=== PATIENT | female | born 1965 | race Caucasian/White ===

== ENCOUNTER → 2018-10-07 09:43 | Day surgery (SDC) | payer OTHER ==
[~2018-10-07 09:43] MED LIST: Buffered Lidocaine 1% SYRIN* 1 ML/SYRINGE INTRADERM ONE; Bupivacaine 0.5% W/EPI SDV* 30 ML VIAL ONE; Bupivacaine 0.5%* 50 ML VIAL ONE; Dexamethasone IV* 4 MG/ML 1 ML (4 MG) IV SLOW PU ONE; Dexamethasone IV* 4 MG/ML 1 ML (4 MG) ONE; DiMENhydriNATE IV* 50 MG/ML VIAL IV PUSH PRN; DiMENhydriNATE IV* 50 MG/ML VIAL ONE; Famotidine IV* 10 MG/ML 2 ML (20 mg) IV SLOW PU ONE; Famotidine IV* 10 MG/ML 2 ML (20 mg) ONE; HYDROmorphone INJ1* 1 MG/ML SYRINGE ONE; Ibuprofen TAB* 600 MG ONE; Ketorolac INJ* 30 MG/ML 1 ML VIAL ONE; Lactated Ringers 1000 ML Bag* 1,000 ML IV SCH; Lidocaine 2% PF * 5 ML VIAL ONE; Midazolam* 1 MG/ML 5 ML VIAL (5 MG) ONE; Naloxone* 0.4 MG/ML 1 ML VIAL IV PRN; Ondansetron INJ* 2 MG/ML VIAL IV PRN; Ondansetron INJ* 2 MG/ML VIAL ONE; Propofol* 10 MG/ML 20 ML BTL ONE; Scopolamine 1.5 mg* PATCH ONE; Scopolamine 1.5 mg* PATCH TRANSDERM PRN; ceFAZolin 2 GM PREMIX in ORs 2 GM/50 ML BAG IVPB ONE; fentaNYL* 50 MCG/ML 2 ML VIAL (100 MCG VIAL) ONE; fentaNYL* 50 MCG/ML 5 ML VIAL (250 MCG VIAL) ONE; oxyCODONE TAB* 5 MG TAB ONE; oxyCODONE/Acetamin 5/325 MG* TAB ONE; oxyCODONE/Acetamin 5/325 MG* TAB PO PRN
--- NOTE | 2018-10-07 15:18 | OP ---
Operative Report - Blank - Operative Report Date of Operation: 10/07/18 Note: PATIENT: Jenniffer Fernandez DATE OF : 1965 DATE OF SURGERY: 10/07/2018 SURGEON: Velasquez Terry MD ENROLLMENT MANAGEMENT MANAGER: ALISSON Hernandez, whos assistance was necessary for positioning, retraction, help with instrumentation, and closure. ANESTHESIOLOGIST: Dr. Massey PREOPERATIVE DIAGNOSIS: Left foot hallux rigidus status post failed Cartiva implantation POSTOPERATIVE DIAGNOSIS: Left foot hallux rigidus status post failed Cartiva implantation OPERATION: Left foot removal of Cartiva implant and then first metatarsophalangeal joint arthrodesis with iliac crest autograft ANESTHESIA: General IMPLANTS: Arthrex 1st MTP dorsal plate and 3.0mm cannulated screw TOURNIQUET TIME: Less than 2 hours with a well-padded thigh tourniquet at 250 mmHg. SPECIMENS: None ESTIMATED BLOOD LOSS: Minimal COMPLICATIONS: none STATUS: Stable from the operating room to the recovery room and then home. INDICATIONS FOR PROCEDURE: Jenniffer had a prior Cartiva implantation for hallux rigidus with persistent pain. Both operative and non-operative treatment alternatives were reviewed. Further, the nature and risks of surgery were reviewed in careful detail, in the office as well as the pre-operative holding area. Our discussions regarding the risks of surgery included, but were not limited to, infection, wound problems, nerve injury, neuroma, RSD, persistent symptoms, blood clot, nonunion, malunion, fracture, need for further surgery, failure of the surgery, and even the remote chance of catastrophic complication, including loss of limb. DESCRIPTION OF PROCEDURE: The patient was seen in the preoperative holding unit and informed written consent was obtained. The appropriate extremity was marked. The patient was then brought to the operating room and carefully positioned on the operating room table. Anesthesia was induced. All bony prominences were padded with great care. A chlorhexidine based pre-scrub was performed followed by a chloraprep prep and drape in standard sterile fashion. A surgical safety pause was then conducted in which we confirmed the appropriate patient, extremity, planned procedure, availability of equipment, indication and administration of prophylactic antibiotics, and DVT prophylaxis in the form of a compression boot on the non-surgical extremity. I began with an Esmarch exsanguination of the limb and inflated the tourniquet. I then made an incision dorsally overlying the first MTP joint. I carried the dissection down through the soft tissue and mobilized the EHL tendon laterally. I then came sharply down to the level of the first MTP joint. I released around the medial aspects and lateral aspects of the joint to expose the metatarsal head and the base of the proximal phalanx. We had excellent visualization. There was no obvious problem with the Cartiva or any loosening appreciated. I removed the Cartiva implant in whole. I then removed any remaining cartilage on the metatarsal head and proximal phalanx with a 15 blade scalpel and curette. I then used a curette to remove any fibrinous coating in the Cartiva site. I then used a 2 mm be to golf ball the first metatarsal head and proximal phalanx. A small K wire was then used to drill numerous holes in the first metatarsal and proximal phalanx as well. Attention was then turned to the left iliac crest which had been previously prepped and draped in a standard fashion. A small amount of Marcaine with epinephrine was placed in the subcutaneous tissues and then also used to anesthetize the periosteum and the soft tissues over the ASIS. Just posterior to the ASIS, a small stab incision using a 15 blade was made. A Jamshidi needle was then advanced being careful to stay centered on the iliac crest. This was advanced slowly and carefully through the superior cortex of the crest between the inner and outer tables of bone. Once this area had been reached, a syringe was used to remove 3cc of bone marrow aspirate. The stylet was then removed from the Jamshidi needle and multiple cores on bone graft were harvested from the iliac crest. These were added to the dish with the bone marrow aspirate. The incision site for the bone graft was then copiously irrigated and closed in layers utilizing 3-0 Monocryl and 3-0 nylon. A sterile dressing was applied. The bone graft was then placed into the hole where the implant was removed on the first metatarsal head. It was tamped in with a bone tamp. This filled up the entirety of the hole. I then manually reduced the first MTP joint and placed a 0.062 K wire to provisionally hold it in alignment while I checked the alignment, both visually and fluoroscopically. I then placed a dorsal Arthrex first MTP joint plate on the dorsal aspect of the first MTP joint. I manually compress the joint while first placing a dorsal locking screws and then a proximal screw in the oblong hole to provide extra compression. I then placed a 3.0 mm cannulated screw across the joint to provide extra compression. The rest of the screw holes in the plate were then filled in. At the margins of the joint, I used some ground up allograft chips mixed with the bone marrow aspirate, tamped into the edges of the joint. Final fluoroscopic images were then obtained. The wound was irrigated and meticulously closed in layers utilizing 3-0 Monocryl and 3-0 nylon. A sterile dressing was then applied followed by a splint with the ankle in a neutral position. The patient was then awakened from anesthesia and transferred to the recovery room in stable condition. There were no complications. All needle and sponge counts were correct at the end of the case. ATTESTATION: I attest I was present and scrubbed and performed the critical portions of the procedure myself. POSTOPERATIVE PLAN: The patient will remain heel weightbearing for anticipated duration of 8 weeks. Followup will be in 2 weeks for likely suture removal and Steri-Strip application.
[2018-10-07] MEDS: fentaNYL* 50 MCG/ML 2 ML VIAL (100 MCG VIAL) IV PRN ×2 (15:28→16:08)
[2018-10-07] MEDS: HYDROmorphone INJ1* 1 MG/ML SYRINGE IV PRN ×5 (16:36→18:16)
[2018-10-07 20:14] VITALS: BP 125/83
== END | disposition home or self-care (01) ==
LOC: OR 09:43
PROVIDERS: ATTEND Orthopaedic Surgery
DX: M20.22 Hallux rigidus, left foot (principal); T84.84XA Pain due to internal orthopedic prosthetic devices, implants and grafts, initial encounter; Y83.1 Surgical operation with implant of artificial internal device as the cause of abnormal reaction of the patient, or of later complication, without mention of misadventure at the time of the procedure
CPT/HCPCS: A9270-GY; C1713; J0690; J1100; J1170; J1240; J1885; J2250; J2405; J2704; J3010; J3490